=== PATIENT | female | born 1985 | race Caucasian/White ===

== ENCOUNTER → 2016-08-16 | Outpatient (CLI) | payer BC | LOC: MOB LAB 10:48 | PROVIDERS: ATTEND Family Medicine | DX: N89.8 Other specified noninflammatory disorders of vagina (principal) | CPT/HCPCS: 87480; 87510; 87660 ==

== ENCOUNTER → 2016-09-27 | Outpatient (CLI) | payer BC ==
[2016-09-27 15:28] LABS: FREE T4 (FREE THYROXINE) 1.24 ng/dL (0.93-1.71)
== END ==
LOC: MOB LAB 13:19
PROVIDERS: ATTEND Family Medicine
DX: E03.9 Hypothyroidism, unspecified (principal)
CPT/HCPCS: 36415; 84439; 84443

== ENCOUNTER 2017-11-16 00:10 | Observation (INO) ==
[2017-11-16] MEDS: Lactated Ringers 500 ML PRIMARY IV ONE ×2 (01:45→06:40)
[2017-11-16] MEDS ORDERED: HYDROXYZINE PAMOATE 25 MG CAPSULE PO ONE (01:47)
[2017-11-16] MEDS ORDERED: Lactated Ringers 1,000 ML PRIMARY IV ONE (01:54)
[2017-11-16 02:41] LABS: Hematocrit [HCT] 40.9 % (37.0-47.0); MEAN CORPUSCULAR HEMOGLOBIN 29.4 PG (27-31); MEAN CORPUSCULAR HGB CONC 34.2 g/dL (33-37); MEAN CORPUSCULAR VOLUME 85.7 FL (81-99); MEAN PLATELET VOLUME 10.8 FL (7.4-12.2); RED BLOOD COUNT 4.77 10^6/uL (4.20-5.40)
[2017-11-16] MEDS: Lactated Ringers-OB Dept 1,000 ML PRIMARY IV SCH ×4 (02:45→22:06)
[2017-11-16 02:49] LABS: BLOOD UREA NITROGEN 7 mg/dL (7-22); SERUM ALBUMIN 2.9 g/dL (3.5-4.8)
[2017-11-16] MEDS: NIFEdipine 10 MG CAPSULE PO SCH ×6 (09:00→22:05)
[2017-11-16] MEDS: NIFEdipine 10 MG CAPSULE PO PRN ×3 (09:00→10:45)
[2017-11-16] MEDS: URSODIOL 300 MG PO SCH ×2 (09:00→20:14)
--- NOTE | 2017-11-16 09:04 | OB.PROGRES ---
Intake - - Reason for Visit/Chief Complaint: Contractions Admitted From: Home - Estimated Due Date: 12/14/17 Gestational Age in Weeks and Days: 36 Weeks and 0 Days Para: 2 Term Births: 1 Births: 1 Number of Abortions (Spont./Elective): 0 Living Children: 2 - Labs Blood Type and Rh: A+ Group B Strep: Unknown HIV: Negative Rubella Status: Immune Maternal - Vital Signs Last Taken Vital Signs: Vital Signs - Last Taken Temperature 98.3 F 11/16/17 05:00 Pulse Rate 78 11/16/17 05:00 Respiratory Rate 18 11/16/17 05:00 Blood Pressure 128/64 11/16/17 05:00 Pulse Ox 99 11/16/17 05:00 - Cervical Exam Cervical Dilation (cm): 1+ Cervical Effacement Percentage: 50 Station: -1 Exam Performed By: Nena Laboy RN - Vaginal Discharge Vaginal Bleeding Amount: None Vaginal Discharge Amount: None Monitoring - Uterine Activity Uterine Contraction Monitor Mode: External Contraction Frequency(minutes): 0 Contraction Duration (seconds): 0 Uterine Contraction Pattern: None Uterine Tone Measurement Phase: Soft Uterine Contraction Intensity: Mild Results - Labs CBC and BMP: 11/16/17 02:00 11/16/17 02:00 - Bedside Testing Bedside Urine Ketone: Negative Bedside Urine Leukocytes Esterase: Negative Bedside Urine Nitrite: Negative Bedside Urine Occult Blood: Negative Bedside Urine Protein: Negative Bedside Specific [place]: 1.010 Assessment and Plan - Assessment / Plan Additional Assessment/Plan Details: The patient is a 32-year-old at 36 weeks today with a history of 1 C- section after an induction of labor for cholestasis of who was diagnosed with cholestasis of in this about 2 weeks ago with elevated liver function tests and elevated bile acids. The patient was administered a full steroid course about 2 weeks ago. The patient has been taking nifedipine 10 mg every 4 hours for contractions. The patient presented last night with increased contraction pain. The patient was administered IV fluids and her last dose of nifedipine was at midnight which is 9 hours ago. The patient's pain improved overnight and the patient was not administered another dose of nifedipine at 0400 hrs. with the nurse relating that the patient was 37 weeks gestation and the patient was doing much better. Now, the patient started yadira more frequently earlier this morning and now the patient can feel the contractions. Objective: No acute distress but the patient can feel contractions Lungs clear to auscultation Heart regular rate and rhythm Abdomen is gravid, soft, no guarding or rebound. Cervix was 1 cm and thick by my exam just now with no blood with exam. Labs showed normal liver function tests. Creatinine was 0.4. H&H was 14 and 40.9 and normal platelets. [place] shows that the contractions are every 2-3 minutes and a category 1 heart rate tracing. Assessment: IUP 36 weeks gestation and not 37 weeks gestation. Improve liver function tests which were also improved and normal 2 days ago with the patient having a diagnosis of cholestasis of . contractions with increased contraction frequency since last night even taking nifedipine 10 mg every 4 hours. The patient's cervix is unchanged from early this morning to just now and the patient's cervix is 1 cm and thick. Plan: I discussed with the patient and her the thought that the patient was 37 weeks today but the patient is 36 weeks. We discussed that the patient could continue to have nifedipine and that it was an option to try to have the patient's contractions decreased in frequency. The patient and her discussed this and with the above information that the patient's cervix is unchanged, the patient would like to try nifedipine 10 mg. I initially will load the patient with nifedipine 10 mg by mouth daily 20 minutes 3 doses if the patient tolerates this from a blood pressure perspective and a heart rate tracing perspective. And then administer 10 mg every 4 hours. If the patient continues to contract and the patient's contractions are causing discomfort, a repeat section would be discussed. If the patient's contractions resolve or improve and no pain with contractions then we will continue to observe the patient. We did discuss the possibility if the patient needed a section today of the baby needing to be transferred secondary to needing a NICU. This would be discussed more after the nifedipine is tried. The patient expressed understanding.
[2017-11-16] MEDS ORDERED: LIDOCAINE W/ SODIUM BICARB 0.5 ML SYR SUBD PRN (09:10)
[2017-11-16] MEDS ORDERED: ONDANSETRON 4 MG/2 ML VIAL IVP PRN (09:10)
[2017-11-16] MEDS ORDERED: Ondansetron ODT Tab 4 MG TAB PO PRN (09:10)
[2017-11-16] MEDS ORDERED: CALCIUM CARBONATE 500 MG (TUMS) CHEWABLE TABLET PO PRN (09:10)
[2017-11-16] MEDS ORDERED: FAMOTIDINE 20 MG/2 ML VIAL IVP ONE (09:18)
--- NOTE | 2017-11-16 14:48 | OB.PROGRES ---
Date and Time of Service: 11/16/17 Interval History: Landy is doing well. Reports that she is not feeling her contractions as much as she was this morning. Denies vag bleeding or gushes of fluid. Baby has been moving around well. She does have a PEÑA, which has improved with tylenol and some clears. Denies RUQ pain. No vision changes. Edema is about the same. Objective - Cervical Exam [place]: irregular, mild. Heart Rate: 120s, + accels. No decels noted. Heart Rate Interpretation Category: Category I - Labs CBC and BMP: 11/16/17 02:00 11/16/17 02:00 - Vital Signs Last Taken Vital Signs: Vital Signs - Last Taken Temperature 98.0 F 11/16/17 09:00 Pulse Rate 77 11/16/17 13:00 Respiratory Rate 18 11/16/17 13:00 Blood Pressure 133/78 11/16/17 13:00 Pulse Ox 99 11/16/17 05:00 Assessment and Plan - Patient Problems (1) Cholestasis of in third trimester Current Visit: No Status: Acute Priority: High Code(s): O26.613 - Liver and biliary tract disorders in , third trimester (2) uterine contractions Current Visit: Yes Status: Acute Code(s): O47.9 - False labor, unspecified - Assessment / Plan Additional Assessment/Plan Details: -pt has had no cervical change during her time on the unit. She continues, however, to contract too frequently for her to be sent home. Will continue the procardia, until 37 weeks and delivery (unless labor sooner), but will change frequency to q3h. She has received a recent course of betamethasone. -GBS negative. -requests repeat at the time of delivery. -treat her PEÑA with tylenol at this time. -continue to observe closely.
[2017-11-16] MEDS ORDERED: ACETAMINOPHEN 325 MG TABLET PO PRN (17:35)
[2017-11-16] MEDS ORDERED: Zolpidem Tab 5 MG TAB PO PRN (22:58)
[2017-11-17] MEDS: NIFEdipine 10 MG CAPSULE PO SCH ×3 (01:59→09:43)
[2017-11-17 05:18] VITALS: RESP 16
[2017-11-17] MEDS: Lactated Ringers-OB Dept 1,000 ML PRIMARY IV SCH (05:36)
[2017-11-17] MEDS: URSODIOL 300 MG PO SCH (08:29)
[2017-11-17] MEDS ORDERED: Prenatal Multivitamin Tab 1 TAB TAB PO SCH (09:00)
[2017-11-17 09:05] VITALS: BP 122/75; TEMP 97.7; O2SAT 99
--- NOTE | 2017-11-17 09:59 | OB.PROGRES ---
Date and Time of Service: 11/17/17 @ 0930 Interval History: Feeling much better today. Contractions are essentially gone. No cramping. Denies vag bleeding or leakage of fluid. Baby has been moving around well. She got flushed and didn't feel well with q3h dosing of procardia, so it was moved back to q4h and she has done much better. No other complaints. Objective - Cervical Exam [place]: irritability Heart Rate: 120, + accels, no decelerations. Moderate variability Heart Rate Interpretation Category: Category I - Labs CBC and BMP: 11/16/17 02:00 11/16/17 02:00 - Vital Signs Last Taken Vital Signs: Vital Signs - Last Taken Temperature 97.7 F 11/17/17 08:20 Pulse Rate 81 11/17/17 08:20 Respiratory Rate 16 11/17/17 08:20 Blood Pressure 122/75 11/17/17 08:20 Pulse Ox 99 11/17/17 08:20 Assessment and Plan - Patient Problems (1) Cholestasis of in third trimester Current Visit: No Status: Acute Priority: High Code(s): O26.613 - Liver and biliary tract disorders in , third trimester (2) uterine contractions Current Visit: Yes Status: Acute Code(s): O47.9 - False labor, unspecified - Assessment / Plan Additional Assessment/Plan Details: -contractions have stopped, will continue the procardia until 37 weeks. -s/p course of betamethasone a couple of weeks ago. -will plan repeat at 37 weeks, which falls on 11/23. OR notified. -strict return precautions discussed--decreased movement, contractions more than every 5 minutes and getting stronger, leakage of fluid or vaginal bleeding, or ANY other concerns that the pt has. -f/u in the office on 11/21 at 1300. DISCHARGE NOTE: Admitting diagnosis: contractions, cholestasis, h/o previous x 1. Discharge diagnosis: contractions (resolved), cholestasis, h/o previous x1. Outcome: complete resolution of contractions with IV hydration and PO procardia Disposition: home F/u: 11/21 for NST and office visit. Diet: regular. - Time/Visit Time Spent With Patient: Less Than 15 Minutes
== END 2017-11-17 10:07 | disposition home or self-care (01) ==
LOC: MED/SURG 00:10 → OBOP 00:10 → OBIP 03:07
PROVIDERS: ADMIT Family Medicine; ATTEND Family Medicine

== ENCOUNTER 2017-11-21 08:00 | Inpatient (IN) ==
[2017-11-23] MEDS ORDERED: ONDANSETRON 4 MG/2 ML VIAL IVP PRN ×2 (06:24→10:00)
[2017-11-23] MEDS ORDERED: ATROPINE SULFATE 0.4 MG/1 ML VIAL IVP PRN (06:24)
[2017-11-23] MEDS ORDERED: fentaNYL Inj 100 MCG/2 ML VIAL IVP PRN (06:24)
[2017-11-23] MEDS ORDERED: HYDROmorphone 2 MG/1 ML IVP PRN (06:24)
[2017-11-23] MEDS ORDERED: Ondansetron ODT Tab 8 MG TAB PO PRN (06:24)
[2017-11-23] MEDS ORDERED: LIDOCAINE W/ SODIUM BICARB 0.5 ML SYR SUBD PRN ×2 (06:24→07:12)
--- NOTE | 2017-11-23 06:26 | CRNA.PROGR ---
Anesthesia Recovery Phase I - Post Anesthesia Evaluation Patient's Condition on Arrival in Phase I: Stable Patient's Condition on Arrival in Phase II: Stable Pain Level: 0
--- NOTE | 2017-11-23 06:26 | CRNA.PROGR ---
Anesthesia Time - - Start date: 11/23/17 End date: 11/23/17 - Procedure/Recovery Time Anesthesia : Time In: 07:59 Anesthesia : Time Out: 09:15 Anesthesia : Total Time: 76 - Total Anesthesia Time Total Anesthesia Time (minutes): 76 - Other Physical Status: P2 Anesthesia Type: Spinal Block
--- NOTE | 2017-11-23 06:26 | CRNA.PROGR ---
Post Anesthesia Phase II - Post Anesthesia Phase II Patient Stable and Discharged To: OB Care Assumed By Surgeon: Manan Luna MD
[2017-11-23] MEDS ORDERED: Lactated Ringers 1,000 ML PRIMARY IV SCH ×2 (06:30→07:15)
[2017-11-23] MEDS ORDERED: Sodium Chloride 0.9% vial 10 ML ONE ×2 (06:38→07:01)
[2017-11-23] MEDS ORDERED: ePHEDrine Inj 50 MG/ML AMP ONE (06:38)
[2017-11-23] MEDS ORDERED: PHENYLEPHRINE 10,000 MCG/1 ML VIAL ONE (06:38)
[2017-11-23] MEDS ORDERED: LIDOCAINE HCL 2 % 10 ML JELLY URO-JECT TOPICAL PRN ×2 (06:42→07:12)
[2017-11-23] MEDS ORDERED: fentaNYL Inj 100 MCG/2 ML VIAL ONE (07:02)
[2017-11-23] MEDS ORDERED: Oxytocin 20 Units + LR 20 UNIT/1,000 ML BAG IV ONE (07:06)
[2017-11-23] MEDS ORDERED: FAMOTIDINE 20 MG/2 ML VIAL IVP ONE (07:12)
[2017-11-23] MEDS ORDERED: Metoclopramide Inj 10 MG/2 ML VIAL IV ONE (07:12)
[2017-11-23] MEDS ORDERED: CITRIC ACID/SODIUM CITRATE 30 ML CUP PO ONE (07:12)
[2017-11-23] MEDS ORDERED: CefOXitin Inj 2 GM in Sodium Chloride 0.9% 100 ML IV ONE (07:12)
[2017-11-23] MEDS ORDERED: Oxytocin 20 Units + LR 20 UNIT/1,000 ML BAG IV SCH ×2 (07:15→10:00)
[2017-11-23 07:27] LABS: Hematocrit [HCT] 38.2 % (37.0-47.0); Hemoglobin [HGB] 13.4 g/dL (12.0-16.0); MEAN CORPUSCULAR HEMOGLOBIN 29.6 PG (27-31); MEAN CORPUSCULAR HGB CONC 35.1 g/dL (33-37); MEAN CORPUSCULAR VOLUME 84.5 FL (81-99); MEAN PLATELET VOLUME 10.5 FL (7.4-12.2); RED BLOOD COUNT 4.52 10^6/uL (4.20-5.40)
[2017-11-23] MEDS: Lactated Ringers 1,000 ML PRIMARY IV ONE ×2 (07:34→07:35)
[2017-11-23] MEDS: Metoclopramide Inj 10 MG/2 ML VIAL IV ONE (07:35)
[2017-11-23] MEDS ORDERED: ONDANSETRON 4 MG/2 ML VIAL ONE (08:19)
[2017-11-23] MEDS ORDERED: Lactated Ringers 1,000 ML PRIMARY IV ONE (08:46)
--- NOTE | 2017-11-23 09:25 | CRNA.PROCE ---
Central Neuraxis Block Placemt - - Safety Measures: Time Out Taken, Site Verified - - Type of Block: Subarachnoid Reason for Block: Surgical Moniters Used During Block: EKG, SPO2, NIBP Sedation Used - Enter Amount Used in Comment Field: Fentanyl (mcg): Yes (50) Positioning: Sitting Skin Prep Used: ChloroPrep (Twice) Skin Infiltration - Enter Amount Used in Comment Field: 1% Xylocaine (mL): Yes Introducer User: 23 Gauge Spinal Needle Used: 22 Josephine 80 mm Local Anesthetic - Enter Amount Used in Comment Field: 0.75 % Bupivacaine with Dextrose (ml): Yes (2 ml) Bioclusive Dressing Applied: No Anesthesia Time - Other Weight: 114.759 kg Height: 5 ft 7 in Body Mass Index (BMI): 39.6
[2017-11-23] MEDS ORDERED: D5-LR 1,000 ML PRIMARY IV SCH (10:00)
[2017-11-23] MEDS ORDERED: LANOLIN HPA 40 GM TUBE TOPICAL PRN (10:00)
[2017-11-23] MEDS ORDERED: Naloxone Inj 0.01 MG, Sodium Chloride 0.9% vial 1 ML IVP PRN ×2 (10:00)
[2017-11-23] MEDS ORDERED: BUTORPHANOL TARTRATE 2 MG/1 ML VIAL IVP PRN (10:00)
[2017-11-23] MEDS ORDERED: diphenhydrAMINE 50 MG/1 ML VIAL IV PRN (10:00)
[2017-11-23] MEDS ORDERED: diphenhydrAMINE 25 MG CAPSULE PO PRN (10:00)
[2017-11-23] MEDS ORDERED: CALCIUM CARBONATE 500 MG (TUMS) CHEWABLE TABLET PO PRN (10:00)
[2017-11-23] MEDS ORDERED: DIPH,PERTUSS,TET(ADACEL) VAC/PF 0.5 ML (Tdap) IM ONE (10:00)
[2017-11-23] MEDS ORDERED: Nalbuphine Inj 20 MG/ML Ampule IVP PRN (10:00)
[2017-11-23] MEDS ORDERED: HYDROmorphone 2 MG/1 ML IV PRN (10:00)
[2017-11-23] MEDS ORDERED: FAMOTIDINE 20 MG/2 ML VIAL IVP PRN (10:00)
[2017-11-23] MEDS: oxyCODONE-ACETAMINOPHEN 5-325 TAB PO PRN ×4 (10:11→22:52)
[2017-11-23] MEDS: KETOROLAC 15 MG/1 ML VIAL IVP SCH ×3 (10:15→21:57)
[2017-11-24] MEDS: oxyCODONE-ACETAMINOPHEN 5-325 TAB PO PRN ×5 (03:00→20:57)
[2017-11-24] MEDS: KETOROLAC 15 MG/1 ML VIAL IVP SCH ×2 (04:11→11:46)
[2017-11-24 05:56] LABS: Hematocrit [HCT] 34.6 % (37.0-47.0); Hemoglobin [HGB] 11.9 g/dL (12.0-16.0); MEAN CORPUSCULAR HEMOGLOBIN 29.8 PG (27-31); MEAN CORPUSCULAR HGB CONC 34.4 g/dL (33-37); MEAN CORPUSCULAR VOLUME 86.5 FL (81-99); MEAN PLATELET VOLUME 10.1 FL (7.4-12.2)
[2017-11-24] MEDS ORDERED: CITRIC ACID/SODIUM CITRATE 30 ML CUP PO ONE (06:00)
[2017-11-24] MEDS ORDERED: Oxytocin 20 Units + LR 20 UNIT/1,000 ML BAG IV SCH (06:00)
[2017-11-24] MEDS ORDERED: LIDOCAINE W/ SODIUM BICARB 0.5 ML SYR SUBD PRN (06:00)
[2017-11-24] MEDS ORDERED: Lactated Ringers 1,000 ML PRIMARY IV ONE (06:00)
[2017-11-24] MEDS ORDERED: CefOXitin Inj 2 GM in Sodium Chloride 0.9% 100 ML IV ONE (06:00)
[2017-11-24] MEDS ORDERED: Lactated Ringers 1,000 ML PRIMARY IV SCH (06:00)
[2017-11-24] MEDS ORDERED: FAMOTIDINE 20 MG/2 ML VIAL IVP ONE (06:00)
[2017-11-24 06:16] LABS: BLOOD UREA NITROGEN 4 mg/dL (7-22); SERUM ALBUMIN 2.4 g/dL (3.5-4.8); Uric Acid 4.6 mg/dl (2.5-6.2)
[2017-11-24] MEDS: Metoclopramide Inj 10 MG/2 ML VIAL IV ONE (07:59)
[2017-11-24] MEDS: Senna/Docusate Tab 1 TAB TAB PO SCH ×2 (08:13→20:56)
[2017-11-24] MEDS: Prenatal Multivitamin Tab 1 TAB TAB PO SCH (08:13)
--- NOTE | 2017-11-24 09:41 | CRNA.PROGR ---
Anesthesia Note - Progress Notes Anesthesia Progress Note: Sitting up, in bed with the breast pump running. Denies headache. States her back is a little sore since she started pumping. Not nauseated today though was once yesterday. Baby still in nursery as he's required supplemental O2. They are pleased with care so far. Vital Signs - Last Taken Temperature 97.7 F 11/24/17 08:20 Pulse Rate 93 11/24/17 08:20 Respiratory Rate 18 11/24/17 08:20 Blood Pressure 127/79 11/24/17 08:20 Pulse Ox 96 11/24/17 08:20 No apparent anesthetic difficulties.
[2017-11-24] MEDS: HEPARIN 5000 UNIT/1 ML SUBCUT SCH ×2 (09:50→18:30)
[2017-11-24] MEDS: SIMETHICONE 80 MG TABLET PO PRN (19:03)
[2017-11-24] MEDS: IBUPROFEN 800 MG TABLET PO PRN (23:47)
[2017-11-25] MEDS: HEPARIN 5000 UNIT/1 ML SUBCUT SCH ×3 (01:37→17:20)
[2017-11-25] MEDS: oxyCODONE-ACETAMINOPHEN 5-325 TAB PO PRN ×5 (03:02→21:25)
[2017-11-25] MEDS: IBUPROFEN 800 MG TABLET PO PRN ×2 (06:38→14:36)
[2017-11-25] MEDS: Senna/Docusate Tab 1 TAB TAB PO SCH ×2 (09:27→21:26)
[2017-11-25] MEDS: Prenatal Multivitamin Tab 1 TAB TAB PO SCH (09:27)
[2017-11-25] MEDS: SIMETHICONE 80 MG TABLET PO PRN (14:35)
[2017-11-25 22:04] VITALS: RESP 16
[2017-11-26] MEDS: HEPARIN 5000 UNIT/1 ML SUBCUT SCH ×2 (01:46→10:07)
[2017-11-26] MEDS: IBUPROFEN 800 MG TABLET PO PRN ×2 (01:48→10:25)
[2017-11-26 03:00] VITALS: BP 118/68; TEMP 97.7
[2017-11-26] MEDS: oxyCODONE-ACETAMINOPHEN 5-325 TAB PO PRN ×2 (06:35→12:53)
[2017-11-26] MEDS: Prenatal Multivitamin Tab 1 TAB TAB PO SCH (10:07)
[2017-11-26] MEDS: Senna/Docusate Tab 1 TAB TAB PO SCH (10:07)
[2017-11-26 11:22] VITALS: O2SAT 94
--- NOTE | 2017-12-04 17:26 | OB.OP.NOTE ---
Operative Report Surgeon: Rao Luna MD Size Changer: Palmer Sands MD Anesthesia Type: Regional Anesthesia Provider: Darlin Hwang CRNA Surgery Date: 11/23/17 Preoperative Diagnosis: Cholestasis of . Previous section x 1 Postoperative Diagnosis: same, delivered Procedure: Repeat section Complications: none Estimated Blood Loss (mL): 600 Urine Output (mL): 150 Fluids: 2800 cc LR. 700 cc LR + 20 mU of pitocin Indications: We do not offer vaginal after section trials at our facility and the patient did not desire this. She is requesting a repeat section. Findings: male , in cephalic presentation, clear amniotic fluid. Description of Procedure: The patient was taken to the operating room where spinal anesthesia was found to be adequate. She was then prepared and draped in the normal sterile fashion in the dorsal supine position with a leftward tilt. A Pfannenstiel skin incision was then made with the scalpel and carried through to the underlying layer of fascia with the Bovie. The fascia was incised in the midline and the incision extended laterally with the Bovie. The superior aspect of the fascial incision was then grasped with the Karen clamps, elevated, and the underlying rectus muscles dissected off bluntly. Attention was then turned to the inferior aspect of this incision which, in a similar fashion, was grasped with the Karen clamps and the rectus muscles dissected off both bluntly and with the Bovie. The rectus muscles were then in the midline, and the peritoneum identified and entered digitally. The peritoneal incision was then extended superiorly and inferiorly with good visualization of the bladder. The Tyson retractor was then inserted and the vesicouterine peritoneum was identified. The lower uterine segment was incised in a transverse fashion with the scalpel. The uterine incision was then extended laterally in a blunt fashion. The infant's head was delivered atraumatically. The nose and mouth were suctioned with the bulb suction and the cord clamped and cut after 45 seconds for delayed cord clamping. The was handed off to the awaiting nurse. Cord gases and cord blood were sent for analysis. The placenta was then removed manually; the uterus exteriorized, and cleared of all clots and debris. The uterine incision was repaired with 0 Vicryl in a running, locked fashion. A second layer of the same suture was used to obtain excellent hemostasis. The peritoneal cavity was then copiously irrigated with warm saline. The uterus was returned to the abdomen. The paracolic gutters were copiously irrigated with warm saline and a second look at the uterine incision continued to reveal excellent hemostasis. The peritoneum was closed with 3-0 Vicryl. The fascia was reapproximated with 0 Vicryl in a running fashion. The subcutaneous space was irrigated copiously with warm saline and then closed first with 3-0 Vicryl and then more superficially with Insorb absorbable sutures. The skin was reapproximated with Steri-Strips and a Silverlon dressing applied. Fundal massage was completed with no clots in vaginal vault. The patient tolerated the procedure well. Sponge, lap, and needle counts were correct x2. Mefoxin was given preoperatively less than one hour prior to incision time. The patient was taken to the recovery room in stable condition.
--- NOTE | 2017-12-04 17:31 | OB.PROGRES ---
Subjective Post Day: 1 Pain Management: PO Cobos Catheter: No Flatus: Yes Lochia Color: Rubra/Red Small 10-25 ml Diet: Regular Feeding Method: Exculsively Ambulating: Yes Concerns / Additional Information: Overall, feeling much better. Incision is a little more sore than she thought it would be. No complaints. Objective - General General Appearance: POSITIVE: No Acute Distress, Cooperative - Cardiovacular Cardiovascular Exam: POSITIVE: RRR, No Murmur Edema: +1 Pedal Edema Extremities: Negative Mercedes's - Bilaterally - Respiratory Respiratory Exam: POSITIVE: Clear to Auscultation - Bilaterally, Breathing Non Labored - Abdomen Bowel Sounds: Hypoactive Abdominal Wound Assessment: [place] Dressing Assesstment / Plan (1) S/P repeat low transverse Status: Acute (2) Cholestasis of in third trimester Status: Acute Priority: High Assessment / Plan: -routine cares. -labs remain normal at this point. -breast feeding going well. -rubella immune. -rh positive. -continue close observation. -d/c home in 1-2 days, pending clinical course.
--- NOTE | 2017-12-04 17:37 | OB.PROGRES ---
Subjective Post Day: 2 Cobos Catheter: No Flatus: Yes Lochia Color: Rubra/Red Scant < 10 ml [place] Feeding Method: Exculsively Ambulating: Yes Concerns / Additional Information: A little more sore today, but feels like she was maybe a little bit too active yesterday. Denies concerns. Baby is nursing better. Objective - General General Appearance: POSITIVE: No Acute Distress, Cooperative - Cardiovacular Cardiovascular Exam: POSITIVE: RRR, No Murmur Edema: +1 Pedal Edema Extremities: Negative Mercedes's - Bilaterally - Respiratory Respiratory Exam: POSITIVE: Clear to Auscultation - Bilaterally, Breathing Non Labored - Abdomen Bowel Sounds: Present Abdominal Wound Assessment: [place] Dressing Assesstment / Plan (1) S/P repeat low transverse Status: Acute (2) Cholestasis of in third trimester Status: Acute Priority: High Assessment / Plan: -routine cares. -breast feeding. -rubella immune. -rh positive. -wanting to probably stay until tomorrow as she is still pretty sore.
--- NOTE | 2017-12-04 17:53 | DCSUMMARY ---
Hospitalization Summary Admit Date: 11/23/17 Discharge Date: 11/26/17 Primary Diagnosis:: Cholestasis of Secondary Diagnosis:: Previous section x 1. Primary Surgery and Date: Repeat section on 11/23/17 Delivery Type: Hospital Course: Pt was admitted for section at 37 weeks for cholestatis of following discussion of this patient with CORY Cooper at [facility] in [place]. She has a previous h/o section x 1 and was not interested in a (this isn't available at our facility). She had an uneventful surgery. / Postop Complications: Landy's labs were normal upon admission. She remained normotensive her entire stay. Her pain was controlled with oral narcotics and motrin. She was given assistance with breast feeding. Her vaginal bleeding was minimal. She had no other complications. Complications: Baby mario Parikh initially had respiratory distress and was treated with bubble CPAP. He was also started on and maintained on D10 for hypoglycemia x 24 hours. He was weaned off this and was eating, voiding and stooling well at the time of discharge. Exam - Vitals Vital Signs: Vital Signs Temperature 97.7 F Temperature Source Axillary Pulse Rate [Apical] 82 Pulse Rate [Pulse Oximeter] 77 Pulse Rate 82 Respiratory Rate 16 Blood Pressure [Left Arm] 118/68 Blood Pressure [Right Arm] 127/73 Blood Pressure 117/64 Pulse Ox 94 Oxygen Flow Rate Room Air Oxygen Delivery Method Room Air Height 5 ft 7 in Weight 253 lb - General General Appearance: No Acute Distress, Cooperative - Head Head Exam: Normal Inspection - Respiratory Respiratory Exam: POSITIVE: Clear to Auscultation - Bilaterally, Breathing Non Labored - Cardiovascular Cardiovascular Exam: POSITIVE: RRR, No Murmur - GI/Abdominal GI/Abdominal Exam: POSITIVE: Normal Bowel Sounds, Non Tender, Non Distended, Soft - Extremities Extremities Exam: POSITIVE: +2 Edema - Neurological Neurological Exam: POSITIVE: Alert, Oriented x 3 - Psychiatric Psychiatric Exam: POSITIVE: Normal Affect, Normal Mood - Integumentary Integumentary Exam: POSITIVE: Normal Color, Warm, Dry Patient Problems - Patient Problem List (1) S/P repeat low transverse Status: Acute Code(s): Z98.891 - History of uterine scar from previous surgery Category: Medical (2) Cholestasis of in third trimester Status: Acute Priority: High Code(s): O26.613 - Liver and biliary tract disorders in , third trimester Category: Medical
== END 2017-11-26 14:50 | disposition home or self-care (01) | DRG 765 ==
LOC: OBOR 11-23 06:05 → MED/SURG 11-23 09:54 → OBIP 11-23 09:55
PROVIDERS: ADMIT Family Medicine; ATTEND Family Medicine